=== PATIENT | male | born 1980 | race Caucasian/White ===

== ENCOUNTER 2019-06-14 02:14 | Observation (INO) | payer OTHER, SELFPAY ==
[2019-06-14 02:49] LABS: #Lymphocytes 1.3 thou/uL (1.20-3.40); #Monocytes 0.9 thou/uL (0.11-0.59); #Neutrophils 11.6 thou/uL (1.40-6.50); %Basophils 0.4 % (0.0-1.0); %Eosinophils 0.3 % (0.0-10.0); %Lymphocytes 9.3 % (21.0-51.0); %Monocytes 6.5 % (0.0-10.0); %Neutrophils 83.6 % (42.0-75.0); Hemoglobin 15.1 g/dL (14.0-18.0); Mean Corpuscular HGB CONC 35.5 g/dL (32.0-36.0); Mean Corpuscular Hemoglobin 33.7 pg (27.0-31.0); Mean Corpuscular Volume 94.8 fL (78.0-98.0); Mean Platelet Volume 7.3 fL (7.4-10.4); Platelet Count 192 thou/uL (130-400); Red Blood Cell (RBC) Count 4.48 mill/uL (4.70-6.10); White Blood Cell (WBC) Count 13.8 thou/uL (4.8-10.8)
[2019-06-14 02:51] LABS: Bilirubin Negative (Negative); Blood, Urine Negative (Negative); Clarity Clear (Clear); Glucose, Urine (Dipstick) Normal (Negative); Leukocyte Negative Leu/uL (Negative); Nitrite Negative (Negative); Protein, Urine (Dipstick) Negative (Neg-Trace); Urobilinogen Normal mg/dL (Less than 2)
[2019-06-14 03:09] LABS: ALT (SGPT) 22 U/L (8-55); AST (SGOT) 16 U/L (5-34); Albumin 4.6 g/dL (3.5-5.0); Alkaline Phosphatase 55 U/L (40-110); Anion Gap 18 mmol/L (10-20); BUN (Urea Nitrogen) 14 mg/dL (8.9-20.6); Bilirubin, Total 0.7 mg/dL (0.2-1.2); Calc. Creatinine Clearance 0 mL/min (70-130); Calcium 9.3 mg/dL (7.8-10.44); Carbon Dioxide 19 mmol/L (22-29); Chloride 104 mmol/L (98-107); Estimated GFR-MDRD Greater than 90; Globulin 2.9 g/dL (2.4-3.5); Glucose 109 mg/dL (70-105); Potassium 3.8 mmol/L (3.5-5.1); Protein, Total 7.5 g/dL (6.0-8.3); Sodium 137 mmol/L (136-145)
[2019-06-14] MEDS ORDERED: Piperacillin/Tazobactam 3.375 GM VIAL ONE ×2 (03:13→10:27)
[2019-06-14] MEDS ORDERED: Ondansetron PF 4 MG/2 ML Vial ONE ×2 (03:13→10:05)
[2019-06-14] MEDS ORDERED: Morphine 4 MG/ML VIAL ONE (03:13)
[2019-06-14] MEDS ORDERED: Ondansetron PF 4 MG/2 ML Vial IVP PRN ×2 (04:42→12:26)
[2019-06-14] MEDS ORDERED: Ondansetron ODT 4 MG TAB SL PRN (04:42)
[2019-06-14] MEDS ORDERED: Sodium Chloride 0.9% 1,000 ML IV SCH (04:42)
[2019-06-14] MEDS ORDERED: Morphine 4 MG/ML VIAL SLOW IVP PRN ×2 (04:43→12:26)
[2019-06-14 04:45] VITALS: BMI 28.9
--- NOTE | 2019-06-14 08:08 | CT ---
PRELIMINARY REPORT/[facility]/AFTER HOURS PROCEDURE CT ABDOMEN AND PELVIS WITH INTRAVENOUS CONTRAST: CLINICAL HISTORY: Pt c/o RLQ pain since 1700 this afternoon. Got worse this evening. Denies nausea/vomiting. TECHNIQUE: Axial computed tomography images of the abdomen and pelvis with intravenous contrast. Coronal and sa gittal reformatted images provided. CONTRAST: With Isovue-370 100 mL intravenous. COMPARISON: None provided. FINDINGS: LUNG BASES: No basilar airspace consolidation or pleural effusion. LIVER: Unremarkable. GALLBLADDER AND BILE DUCTS: Unremarkable. No calcified stone. No ductal dilation. PANCREAS: Unremarkable. SPLEEN: Unremarkable. ADRENAL GLANDS: Unremarkable. KIDNEYS, URETERS AND BLADDER: Unremarkable. No hydronephrosis or nephrolithiasis. No ureteral or blad justo calculi. STOMACH AND BOWEL: No obstruction. No wall thickening. No CT evidence of colitis or acute diverticuli tis. APPENDIX: 1.2 cm the appendix diameter. There is periappendiceal stranding with a very small amount of periappendiceal free fluid. No abscess. PERITONEUM: No free fluid. No free air. LYMPH NODES: No lymphadenopathy. REPRODUCTIVE: Unremarkable as visualized. VASCULATURE: No aortic aneurysm. BONES: No fracture or suspicious osseous abnormality. ABDOMINAL WALL AND SOFT TISSUES: Unremarkable. IMPRESSION: 1. Enlarged, inflamed appendix concerning for acute appendicitis. 2. Periappendiceal stranding and mild free fluid. 3. No abscess or saritha perforation. 4. Recommend surgical evaluation. ELECTRONICALLY SIGNED BY: Sahil Plummer M.D. Jun 14, 2019 3:05:38 AM CDT This report is intended for review by the ordering physician only, in accordance of law. If you recei ve this report in error, please call [facility] at [phone]. FINAL REPORT EMERGENT AFTER HOURS CT ABDOMEN AND PELVIS WITH IV CONTRAST: HISTORY: Worsening right lower quadrant abdominal pain. IMPRESSION: 1. Acute appendicitis without fluid collection seen to suggest abscess. No free intraperitoneal gas i s present. 2. Bibasilar atelectasis. 3. Tiny fat-containing umbilical hernia. 4. Findings are in agreement with the preliminary report by [facility]. CODE QA POS: OFF
[2019-06-14] MEDS ORDERED: Iopamidol 370 76% 100 ML VIAL ONE (08:49)
--- NOTE | 2019-06-14 09:58 | HP ---
CHIEF COMPLAINT: Right lower quadrant pain. HISTORY OF PRESENT ILLNESS: This is a 39-year-old male who presents with a history of pain in his periumbilical area that became more localized to the right lower quadrant, described as sharp 8/10, associated with nausea, but no vomiting. He has never had this pain before. Denies history of chronic abdominal pain or inflammatory bowel disease. He has been diagnosed with CT proven appendicitis. PAST MEDICAL HISTORY: Denies. PAST SURGICAL HISTORY: Denies. MEDICATIONS: Taken daily none. ALLERGIES: NO KNOWN DRUG ALLERGIES. SOCIAL HISTORY: Smokes and drinks occasionally. REVIEW OF SYSTEMS: Ten-system review of systems is otherwise negative unless described above. PHYSICAL EXAMINATION: HEENT: Sclerae are anicteric. Oropharynx is clear. NECK: No adenopathy. CHEST: Clear. HEART: Regular rhythm. ABDOMEN: Soft. Tender right lower quadrant with localized guarding without rebound. No abdominal hernias. EXTREMITIES: No ischemic or edema to extremities. LABORATORY DATA: Creatinine 0.78. Hemoglobin 15, platelet count is 192. CT scan shows acute appendicitis. ASSESSMENT: Acute appendicitis. PLAN: Laparoscopic appendectomy. Risks, benefits, and alternatives discussed, he gives consent. We will do this today. Job ID: [id number]
[2019-06-14] MEDS ORDERED: Glycopyrrolate 0.2 MG/ML 5 ML SYRINGE ONE (10:05)
[2019-06-14] MEDS ORDERED: PROPOFOL 200 MG/20 ML VIAL ONE (10:05)
[2019-06-14] MEDS ORDERED: Rocuronium Bromide 10 MG/ML (10ML VIAL) ONE (10:05)
[2019-06-14] MEDS ORDERED: Lidocaine 1% PF 5 ML VIAL ONE (10:05)
[2019-06-14] MEDS ORDERED: Fentanyl 100 MCG/2 ML VIAL ONE ×2 (10:14→11:10)
[2019-06-14] MEDS ORDERED: Midazolam HCl 2 mg/2 ml Vial ONE (10:14)
[2019-06-14] MEDS ORDERED: Sodium Chloride 0.9% 100 ML ONE (10:28)
[2019-06-14] MEDS ORDERED: Bupivacaine 0.25% HCL 30 ML VIAL ONE (11:02)
[2019-06-14] MEDS ORDERED: Lidocaine 2% w/Epinephrine 1:200K 20 ML VIAL ONE (11:02)
[2019-06-14] MEDS ORDERED: Piperacillin/Tazobactam 3.375 GM in Sodium Chloride 0.9% 100 ML IVPB SCH (12:00)
[2019-06-14] MEDS ORDERED: Morphine 2 MG/ML SYRINGE SLOW IVP PRN (12:26)
[2019-06-14] MEDS ORDERED: Promethazine HCl 25 MG/ML VIAL SLOW IVP PRN (12:26)
[2019-06-14] MEDS ORDERED: HYDROcodone/Acetaminophen 10/325 mg Tablet PO PRN ×2 (12:26)
[2019-06-14] MEDS ORDERED: Dextrose 5% in Water 1,000 ML IV PRN (12:26)
[2019-06-14] MEDS ORDERED: Promethazine HCl 25 MG/ML VIAL IM PRN ×2 (12:26)
[2019-06-14] MEDS ORDERED: Dextrose 50% Abboject 50 ML SYRINGE SLOW IVP PRN (12:26)
[2019-06-14] MEDS ORDERED: hydrALAZINE 20 MG/ML VIAL SLOW IVP PRN (12:26)
[2019-06-14] MEDS ORDERED: Lactated Ringer's 1,000 ML IV SCH (12:26)
[2019-06-14] MEDS ORDERED: Ondansetron HCl/PF 4 MG/2 ML Vial IVP PRN (12:26)
[2019-06-14 13:17] VITALS: BP 126/78; TEMP 97.6
--- NOTE | 2019-06-14 16:16 | OP ---
DATE OF PROCEDURE: 06/14/2019 PREOPERATIVE DIAGNOSIS: Acute appendicitis. POSTOPERATIVE DIAGNOSIS: Acute appendicitis. PROCEDURE PERFORMED: Laparoscopic appendectomy. ANESTHESIA: General. ESTIMATED BLOOD LOSS: Minimal. COMPLICATIONS: None. SPECIMEN: Appendix. FINDINGS: Appendicitis. DESCRIPTION OF PROCEDURE: The patient was taken to the operating room and laid supine on the operating table. After general anesthetic was obtained, a Hammond catheter was placed. The abdomen was prepped and draped in a sterile fashion. A curved incision was made below the umbilicus. Cautery was used to dissect down to and incise the intra-abdominal fascia. The abdominal cavity was entered bluntly using a Elizabeth clamp. A holding stitch of Vicryl was placed on each side of the fascia. A Dimitry trocar was placed. High-flow peritoneum was obtained. A suprapubic 5-mm port and a left lower quadrant 5-mm port were placed under direct camera visualization. The cecum was rolled over to reveal acute appendicitis. A small window was made at the base of the appendix at the mesoappendix. A laparoscopic stapler was fired across the base of the appendix. A reload was fired across the mesoappendix. There was no bleeding on the staple lines. The appendix was placed in the EndoCatch bag and brought out through the Dimitry. The right lower quadrant and pelvis were irrigated using sterile solution. There was no evidence of perforation, no pus. All port sites were infiltrated using local anesthesia. All ports were removed under camera visualization. Pneumoperitoneum was let down. Vicryl suture was used to close the fascial defect below the umbilicus; #4-0 Monocryl and Dermabond were used to close the skin incision. The patient was en route to recovery in stable condition. All instrument counts, needle counts, and lap counts were correct. Job ID: [id number]
[2019-06-14] MEDS ORDERED: Famotidine 20 MG TAB PO SCH (21:00)
[2019-06-14] MEDS ORDERED: Famotidine/PF 20 mg/2ml Vial SLOW IVP SCH (21:00)
== END 2019-06-14 15:56 | disposition home or self-care (01) ==
LOC: ERS 02:14 → SURG A 03:17 → ERS 04:29
PROVIDERS: ADMIT Surgery; ATTEND Surgery
PROC: 0DTJ4ZZ Resection of Appendix, Percutaneous Endoscopic Approach (ICD-10-PCS; principal; 2019-06-14)
DX: K35.80 Unspecified acute appendicitis (principal); F17.210 Nicotine dependence, cigarettes, uncomplicated; F12.10 Cannabis abuse, uncomplicated
CPT/HCPCS: 74177; 80053; 81003; 85025; 88304; 96361; 96365; 96375; 96376; G0378; J2001; J2250; J2270; J2405; J2543; J2704; J3010; J3490; Q9967; S0020

== ENCOUNTER 2025-03-09 13:08 | Outpatient (CLI) | payer BC | END 2025-03-09 13:09 | disposition home or self-care (01) | LOC: CT 13:08 | PROVIDERS: ATTEND Family Medicine | DX: R06.02 Shortness of breath (principal); I25.10 Atherosclerotic heart disease of native coronary artery without angina pectoris | CPT/HCPCS: 71250 ==